=== PATIENT | male | born 1990 | race Caucasian/White ===

== ENCOUNTER 2017-12-25 14:35 | Emergency (ER) | payer OTHER ==
--- NOTE | 2017-12-25 14:48 | CPEKG ---
Heart Rate: 81 RR Interval: 741 P-R Interval: 148 QRSD Interval: 88 QT Interval: 348 QTC Interval: 404 P [place]: 74 QRS [place]: 72 T Wave [place]: 35 EKG Severity - BORDERLINE ECG - EKG Impression: SINUS RHYTHM EKG Impression: prominent P waves Electronically Signed By: Day Romo 25-Dec-2017 23:05:54
--- NOTE | 2017-12-25 15:05 | EDPHY ---
H & P Time Seen by Provider: 12/25/17 15:00 HPI/ROS: CHIEF COMPLAINT: Irregular heartbeat HISTORY OF PRESENT ILLNESS: The patient is a healthy 27 y/o male complaining of an irregular heartbeat, onset last night. Last night, he felt his heart was beating more powerfully than normal. This afternoon, while driving, he again felt his heartbeat was irregular. He describes it as one normal heartbeat, then a more powerful heartbeat, then a skipped heartbeat, and then back to normal. The irregularity is happening about once a minute. He denies shortness of breath , chest pain, or any other associated symptoms. He denies recent cold medicine use, drug use, stress, higher than normal caffeine intake, or any other precipitating factors. He reports he has felt this irregularity in the past. He denies cardiac history or cardiac family history. REVIEW OF SYSTEMS: A 10 point review of systems was performed and is negative with the exception of the elements mentioned in the history of present illness. Past Medical/Surgical History: Denies Social History: Social alcohol use, non-smoking, lives outside of [place] Smoking Status: Never smoked Physical Exam: General Appearance: Alert, pleasant Eyes: Pupils equal and round, no conjunctival pallor or injection ENT, Mouth: Mucous membranes moist Neck: Normal inspection Respiratory: Lungs are clear to auscultation Cardiovascular: Regular rate and rhythm, occasional irregular beat Gastrointestinal: Abdomen is soft and non-tender Neurological: A&O, nonfocal exam Skin: Warm and dry, no rash Extremities: Nontender, no pedal edema Psychiatric: Mood and affect normal Constitutional: Initial Vital Signs Temperature (C) 36.4 C 12/25/17 14:39 Heart Rate 82 12/25/17 14:39 Respiratory Rate 17 12/25/17 14:39 Blood Pressure 140/93 H 12/25/17 14:39 O2 Sat (%) 97 12/25/17 14:39 O2 Delivery Mode Room Air Allergies/Adverse Reactions: erythromycin base [From Pediazole] Allergy (Verified 12/25/17 14:38) sulfisoxazole [From Pediazole] Allergy (Verified 12/25/17 14:38) Home Medications: Medication Instructions Recorded NK [No Known Home Meds] 12/25/17 Medical Decision Making - Diagnostics EKG Interpretation: EKG interpreted by me reveals prominent P waves, sinus rhythm, no ST/T changes. Interpretation: Prominent P waves Imaging Results: Chest X-Ray 12/25/17 14:57 IMPRESSION: Normal chest x-ray. ED Course/Re-evaluation: The patient presents with an irregular heartbeat, onset last night. EKG reveal evidence ischemia or dysrhythmia. Chest X-ray is normal. monitoring specialist reveals occasional PVCs. Observation in the emergency department revealed occasional PVCs, no serious dysrhythmia. Laboratory analysis is normal. Will discharge home. Differential Diagnosis: Differential diagnosis includes though not limited to SVT, atrial fibrillation, ventricular tachycardia, electrolyte abnormality. - Data Points Laboratory Results: Laboratory Results 12/25/17 14:45 12/25/17 14:45 Medications Given: Discontinued Medications Sodium Chloride (Ns) 1,000 mls @ 0 mls/hr IV ONCE ONE; Wide Open PRN Reason: Protocol Stop: 12/25/17 15:26 Last Admin: 12/25/17 15:35 Dose: 1,000 mls Departure - Departure Disposition: Home, Routine, Self-Care Clinical Impression: Premature ventricular contraction Condition: Good Instructions: Premature Ventricular Contractions (ED) Additional Instructions: 1. Please follow up with your primary care provider. 2. Avoid higher than normal caffeine intake, cold medicine use, or other discussed potential triggers. 3. Return to the emergency department for any chest pain, shortness of breath, or any other worsening of condition. Referrals: Adonis Jewell DO [Doctor of Osteopathy] - As per Instructions (Call to make an appointment.) Report Scribed for: Day Romo Report Scribed by: Chely Mireles Date of Report: 12/25/17 Time of Report: 15:05 Physician Review and Approval Statement: 12/25/17 15:05 Portions of this note were transcribed by a back office medical assistant. I personally performed a history, physical exam, medical decision making, and confirmed accuracy of information the transcribed note.
[2017-12-25 15:07] LABS: PLATELET COUNT 262 10^3/uL (150-400)
[2017-12-25] MEDS ORDERED: NS 1,000 ML IV ONE (15:25)
[2017-12-25 17:03] VITALS: BP 122/80; PULSE 68; RESP 12; TEMP 98.8; O2SAT 98
== END 2017-12-25 17:01 | disposition home or self-care (01) ==
DX: I49.3 Ventricular premature depolarization (principal); E86.9 Volume depletion, unspecified